=== PATIENT | male | born 1935 | race Caucasian/White ===

== ENCOUNTER 2020-09-23 15:59 | Emergency (ER) | payer MEDICARE, BC, SELFPAY ==
[2020-09-23] VITALS (7 sets, daily range): BP systolic 147–174; BP diastolic 73–74; PULSE 69–74; RESP 18; TEMP 36.9; O2SAT 94–97; BMI 27.2
--- NOTE | 2020-09-23 19:07 | ED_ITS ---
HPI - Wound/Laceration General Chief Complaint: Wound/Laceration Stated Complaint: Facial laceration/abrasion Time Seen by Provider: 09/23/20 18:45 Source: patient and EMS Mode of arrival: EMS Limitations: no limitations History of Present Illness HPI narrative: Patient is an 85-year-old male. Not on anticoagulation. Arrived by EMS for evaluation of injuries that he sustained when he fell prior to arrival. Patient in his for here visiting. He was standing next to his when his tripped. He states he reached out to try to keep her from following in she pulled him over. He was wearing glasses. He did hit the left side of his face on the ground. He thinks he sustained a cut on the left side of his face from his glasses. There was no loss of consciousness. He reports no other injuries from the event. He has no neck pain. Related Data Allergies Allergy/AdvReac Type Severity Reaction Status Date / Time No Known Drug Allergies Allergy Verified 09/23/20 16:13 Review of Systems Constitutional Constitutional: Denies fatigue, Denies fever(s), Denies frequent falls and Denies headache(s) Eyes Eyes: Denies blurry vision and Denies change in vision ENT Ears, Nose, Mouth, and Throat: Denies vertigo, Denies dizziness, Denies headache(s) and Denies sore throat Cardiovascular Cardiovascular: Denies chest pain and Denies dyspnea Respiratory Respiratory: Denies dyspnea Gastrointestinal Gastrointestinal: Denies abdominal pain, Denies nausea and Denies vomiting Integumentary/Breasts Comments: Cut to his left cheek Neurologic Neurologic: Denies confusion, Denies vertigo, Denies dizziness, Denies frequent falls and Denies headache(s) Psychiatric Psychiatric: Denies confusion Endocrine Endocrine: Denies fatigue Hematologic/Lymphatic On Anticoagulants: No Allergic/Immunologic Allergic/Immunologic: Denies urticaria Patient History Medical History Healthy adult Social History Smoking Status: Former smoker Smoking Status: Former smoker alcohol intake frequency: 0-2 drinks per day Alcohol type: hard liquor Substance Use Type: does not use Exam Initial Vital Signs Initial Vital Signs: Vital Signs Pulse Rate 73 09/23/20 16:03 Pulse Oximetry 95 09/23/20 16:03 Const General: cooperative, comfortable, well developed and well groomed Limitations: mental status not altered [facility] Head: normal to inspection Ears: hearing grossly normal bilaterally Nose: external nose normal Face and sinus: abrasion and laceration Mouth: oral mucosae normal Teeth and gingiva: dentition normal Eyes Pupils: PERRL Resp Effort & Inspection: normal respiratory effort Cardio Rate: regular rate GI Inspection: non-distended Skin Other: Patient with a quarter size abrasion over his left cheek. There is a 2 cm laceration just above this just under his left eye. He also has a 2-3 cm laceration just lateral to his left eye. Neuro General: patient alert, patient awake and patient oriented x3 Cognition: normal cognition Speech: speech normal Extrem General: normal to inspection and capillary refill normal Psych Appearance: grossly normal and well kempt Procedures Laceration Repair Laceration 1: Site: face Side (If applicable): left Size (cm): 2 Description: linear Depth: simple, single layer Local Anesthetic: other anesthetic (None) Pre-repair: deep structures intact Skin layer closed with: other (Chromic) Size (cm): 4-0 Number of sutures: 2 Technique: simple, interrupted Laceration 2: Site: face Side (If applicable): left Size (cm): 0.5 Description: linear Depth: simple, single layer Local Anesthetic: other anesthetic (None) Pre-repair: deep structures intact Skin layer closed with: other (Chromic) Size (cm): 4-0 Number of sutures: 1 Technique: simple, interrupted Scores GCS Litzy coma scale eye opening: Spontaneous Litzy coma scale verbal response: Orientated Litzy coma scale motor response: Obey commands [place] coma scale total score: 15 Nexus Score for C-Spine Focal Neurologic deficit present: No Midline spinal tenderness present: No Altered level of conciousness present: No Intoxication present: No Distracting Injury Present: No Nexus Criteria for C-spine: 0 Course Orders Ordered: Discontinued Medications Bacitracin (Bacitracin Oint 0.9 Gm Pckt) 1 applic TOP NOW ONE Stop: 09/23/20 19:09 Last Admin: 09/23/20 19:14 Dose: 1 applic Documented by: SHAE Vital Signs Vital signs: Vital Signs - 8 hr 09/23/20 16:03 09/23/20 16:04 09/23/20 16:13 Temperature 98.5 F Pulse Rate 73 74 73 Respiratory Rate 18 Blood Pressure 147/73 H 147/73 H Pulse Oximetry 95 95 97 09/23/20 16:30 09/23/20 17:00 09/23/20 17:30 Temperature Pulse Rate 69 70 71 Respiratory Rate Blood Pressure Pulse Oximetry 96 94 94 09/23/20 18:37 Temperature Pulse Rate Respiratory Rate Blood Pressure 174/74 H Pulse Oximetry MDM - Wound/Laceration MDM Narrative Medical decision making narrative: This was a mechanical fall. There was no loss of conscious. He is not on anticoagulation. The lacerations were closed as described above. He was given care instructions and return precautions with regard to the abrasions. He has no other injuries reported from the event nor found on the exam. I feel we can hold on radiologic studies. He expressed understanding and agreement. Discharge Plan Departure Patient Disposition: Home Clinical Impression: Laceration, Abrasion Instructions: DI for Laceration Repair Activity Restrictions/Additional Instructions: You can shower like normal. You can use soap and water like normal. You can cover the area with bacitracin or other antibiotic ointment. Follow-up with your primary doctor in the next week. Return to the emergency department for any new or worsening symptoms
[2020-09-23] MEDS: BACITRACIN OINT 0.9 GM PCKT 1 APPLIC TOP (19:14)
== END 2020-09-23 19:31 | disposition home or self-care (01) ==
PROVIDERS: Emergency Provider Emergency Medicine
DX: S01.81XA Laceration without foreign body of other part of head, initial encounter (principal); W19.XXXA Unspecified fall, initial encounter
CPT/HCPCS: 12011; 99282